=== PATIENT | male | born 1990 | race Caucasian/White ===

== ENCOUNTER 2017-05-30 08:39 | Emergency (ER) | payer OTHER ==
[~2017-05-30] VITALS: Ht 162.6 cm; Wt 72.6 kg
[~2017-05-30 08:39] MED LIST: ACET325 PO; CYCL10 PO; HYDACE5 PO; IBUP200 PO; IBUP400 PO; IBUP800 PO; LEVFLO500 PO; NAPR500 PO; NAPR550 PO; Naprosyn500 MG PO; Norco 5-325 Ta1 EACH PO; OXYACE5T PO; OXYACE7.5T PO; RXHYDACE PO; RXNAPNA550 PO; RXOXYACE PO; RXTRAM50 PO; TRAM50 PO; Zithromax250 MG PO
[2017-05-30] MEDS ORDERED: IBUP800 PO (10:47)
== END 2017-05-30 11:38 | disposition home or self-care (01) ==
LOC: ER 08:39
DX: M25.561 Pain in right knee (principal); Z88.0 Allergy status to penicillin; F17.210 Nicotine dependence, cigarettes, uncomplicated
CPT/HCPCS: 99282

== ENCOUNTER 2018-02-14 08:33 | Day surgery (SDC) | payer OTHER | END 2018-02-14 22:54 | disposition home or self-care (01) | LOC: RAD 08:33 | PROC: BP38ZZZ Magnetic Resonance Imaging (MRI) of Right Shoulder (ICD-10-PCS; principal; 2018-02-14) | DX: S43.431A Superior glenoid labrum lesion of right shoulder, initial encounter (principal) | CPT/HCPCS: 20610; 73222; 77002; A9577; Q9967 ==

== ENCOUNTER 2018-07-02 09:36 | Day surgery (SDC) | payer OTHER ==
[~2018-07-02] VITALS: Ht 162.6 cm; Wt 77.1 kg
[2018-07-02] MEDS ORDERED: TRAM50 PO (10:55)
--- NOTE | 2018-07-02 11:21 | NUR ---
07/02/18 1121 Garrick Nicole PT INFORMED ABOUT DELAY IN ROOM DUE TO PREVIOUS CASE RUNNING LONG. PT CURRENTLY RESTING IN BED WITH CALL LIGHT IN REACH AND AT BEDSIDE. PT DENIES ANY NEEDS AT THIS TIME.
--- NOTE | 2018-07-02 14:17 | NUR ---
07/02/18 1417 Beto Blood RECEIVED REPORT FROM [email or web address] AT 1407 AND TOOK OVER PATIENT CARE AT THIS TIME.
== END 2018-07-02 15:16 | disposition home or self-care (01) ==
LOC: ORSCSDS 09:36
PROVIDERS: Orthopaedic Surgery
PROC: 0MNN4ZZ Release Right Knee Bursa and Ligament, Percutaneous Endoscopic Approach (ICD-10-PCS; principal; 2018-07-02 11:30)
PROC: 0SBC4ZZ Excision of Right Knee Joint, Percutaneous Endoscopic Approach (ICD-10-PCS; principal; 2018-07-02 11:30)
DX: M22.41 Chondromalacia patellae, right knee (principal); M22.2X1 Patellofemoral disorders, right knee
CPT/HCPCS: A9270-GY; J0171; J1100; J1885; J2250; J2405; J2704; J2795; J3010; J7120

== ENCOUNTER 2020-03-12 10:34 | Emergency (ER) | payer OTHER ==
[~2020-03-12] VITALS: Ht 162.6 cm; Wt 63.5 kg
[~2020-03-12 10:34] MED LIST changes: +Prilosec Otc20 MG PO
[2020-03-12] MEDS ORDERED: Norco 5-325 Ta1 EACH PO (10:54)
== END 2020-03-12 11:20 | disposition home or self-care (01) ==
LOC: ER 10:34
DX: M54.6 Pain in thoracic spine (principal); M54.2 Cervicalgia; M25.512 Pain in left shoulder; F17.210 Nicotine dependence, cigarettes, uncomplicated; Z88.0 Allergy status to penicillin
CPT/HCPCS: 96372; 99283-25; J1885

== ENCOUNTER 2020-05-27 10:12 | Emergency (ER) | payer OTHER ==
[~2020-05-27] VITALS: Ht 162.6 cm; Wt 68.0 kg
[2020-05-27] MEDS ORDERED: IBUP800 PO (10:19)
[2020-05-27] MEDS ORDERED: ACET500 PO (10:19)
[2020-05-27] MEDS ORDERED: Voltaren100 GM TOP (10:55)
[2020-05-27] MEDS ORDERED: Norco 5-325 Ta1 EACH PO (10:55)
[2020-05-27] MEDS ORDERED: CYCL10 PO (10:55)
== END 2020-05-27 11:12 | disposition home or self-care (01) ==
LOC: ER 10:12
DX: M43.6 Torticollis (principal); Z88.0 Allergy status to penicillin
CPT/HCPCS: 96372; 99282-25; J1885

== ENCOUNTER 2024-08-29 22:27 | Emergency (ER) | payer OTHER ==
[~2024-08-29] VITALS: Ht 162.6 cm; Wt 78.9 kg
[~2024-08-29 22:27] MED LIST changes: +ACET500 PO; +Voltaren100 GM TOP
[2024-08-29] MEDS ORDERED: FentaNYL Citrate 50 MCG/ML 2 ML Injection IV ONE (22:50)
[2024-08-29] MEDS ORDERED: HYDROmorphone HCl/Pf 1MG SYR IV ONE (23:40)
[2024-08-29 23:54] VITALS: BP 158/76
== END 2024-08-30 00:05 | disposition home or self-care (01) ==
LOC: ER 22:27
DX: T23.141A Burn of first degree of multiple right fingers (nail), including thumb, initial encounter (principal); T23.151A Burn of first degree of right palm, initial encounter; Z88.0 Allergy status to penicillin; Z88.1 Allergy status to other antibiotic agents; Z79.2 Long term (current) use of antibiotics; Z79.899 Other long term (current) drug therapy; Z90.49 Acquired absence of other specified parts of digestive tract; F17.210 Nicotine dependence, cigarettes, uncomplicated
CPT/HCPCS: 16000; 96374-59; 96375-59; 99283-25; J1171; J3010